=== PATIENT | male | born 1995 | race Hispanic/Latino ===

== ENCOUNTER 2020-07-22 23:06 | Emergency (ER) | payer SELFPAY ==
[2020-07-22] MEDS ORDERED: KETOROLAC 30MG VIAL (30MG/ML) ONE (23:27)
== END 2020-07-23 00:34 | disposition home or self-care (01) ==
LOC: EDH 23:06
DX: M10.9 Gout, unspecified (principal); Z72.0 Tobacco use
CPT/HCPCS: 96372; 99283; J1885

== ENCOUNTER 2021-06-05 22:04 | Emergency (ER) | payer OTHER ==
[~2021-06-05] VITALS: Ht 165.1 cm; Wt 79.4 kg
[2021-06-05 22:17] VITALS: BP 126/78
[2021-06-05] MEDS ORDERED: ACETAMINOPHEN 500 MG TABLET PO ONE (23:00)
[2021-06-05] MEDS ORDERED: IVER3TAB PO (23:14)
== END 2021-06-05 23:27 | disposition home or self-care (01) ==
LOC: EDH 22:04
DX: U07.1 COVID-19 (principal)
CPT/HCPCS: 87635; 87804 ×2; 99283; C9803

== ENCOUNTER 2021-10-16 00:01 | Emergency (ER) | payer OTHER ==
[~2021-10-16] VITALS: Ht 162.6 cm; Wt 99.8 kg
[~2021-10-16 00:01] MED LIST: IVER3TAB PO
[2021-10-16] MEDS ORDERED: DEXAMETHASONE SOD PHOSPHATE 4 MG/ML 1ML VIAL IM ONE (01:00)
[2021-10-16 01:40] VITALS: BP 144/82
== END 2021-10-16 01:43 | disposition home or self-care (01) ==
LOC: EDH 00:01
DX: J02.9 Acute pharyngitis, unspecified (principal); Z20.822 Contact with and (suspected) exposure to COVID-19; Z79.52 Long term (current) use of systemic steroids
CPT/HCPCS: 87635; 87804 ×2; 87880; 96372; 99283; C9803; J1100

== ENCOUNTER 2021-11-12 04:22 | Emergency (ER) | payer OTHER ==
[~2021-11-12] VITALS: Ht 165.1 cm; Wt 98.0 kg
[2021-11-12 04:25] VITALS: BP 121/64
[2021-11-12] MEDS ORDERED: HYDR25CA PO (05:04)
== END 2021-11-12 05:20 | disposition home or self-care (01) ==
LOC: EDH 04:22
DX: F43.0 Acute stress reaction (principal); F41.9 Anxiety disorder, unspecified; Z79.899 Other long term (current) drug therapy